=== PATIENT | male | born 1940 | race Caucasian/White ===

== ENCOUNTER 2017-05-28 10:32 | Emergency (ER) | payer OTHER, BC ==
[~2017-05-28] VITALS: Ht 177.8 cm; Wt 70.2 kg
[~2017-05-28 10:32] MED LIST: ALEVE220 M2 PO; LIPITOR10 MG PO; LOW DOSE ASPIRI81 M1 PO; OSTEO BI-FLEX1 EAC1 PO
[2017-05-28 10:46] VITALS: BP 133/76
[2017-05-28] MEDS ORDERED: PEPCID40 MG PO (11:04)
[2017-05-28] MEDS ORDERED: BENADRYL25 MG PO (11:04)
== END 2017-05-28 11:40 | disposition home or self-care (01) ==
LOC: EME 10:32
DX: T78.3XXA Angioneurotic edema, initial encounter (principal); L30.9 Dermatitis, unspecified; E78.5 Hyperlipidemia, unspecified; Z79.82 Long term (current) use of aspirin
CPT/HCPCS: 99281; 99283